=== PATIENT | female | born 1970 | race Two or more races ===

== ENCOUNTER → 2016-10-17 | Outpatient (CLI) | payer OTHER ==
[~2016-10-17] MED LIST: BENADRYL25 MG PO; PREDNISONE PO; PRILOSEC; PRILOSEC PO; PROTONIX PO; SYNTHROID; SYNTHROID PO; ZYRTEC; ZYRTEC PO
--- NOTE | ~2016-10-17 | MR113 ---
[facility] A Service of [facility] RADIOLOGY TEXT RESULTS PATIENT: YAZ BERMAN LOCATION: [facility] : 74 UNIT #: [id number] AGE: [address]: Zora Carlisle MD SEX: F ORDER DR: [id number] [facility] [address] [facility] [place], [place] [address] [id number] O MR#: [id number] Acc #: [id number] NAME: YAZ BERMAN : 1970 SEX: F STUDY DATE/TIME: 10/17/2016 8:19 UNIT: [facility] ROOM: STUDY DESCRIPTION: MR Lumbar Wo Contrast Attending Physician: Zora Carlisle M.D. Referring Physician: Zora Carlisle M.D. Ordering Physician: Zora Carlisle M.D. Primary Care Physician: Zora Carlisle M.D. MRI CENTER REPORT This report is preliminary unless electronic signature is present. EXAM MRI of the lumbar spine without contrast. DATE OF EXAM 10/17/2016 COMPARISON Plain films lumbar spine, dated 09/25/2016. HISTORY Patient fell backwards down the stairs 22 years ago with pain on and off. The pain has increased over the past 6 years with sciatica. The patient also has occasional bilateral leg pain and numbness. FINDINGS Multisequence, multiplanar imaging of the lumbar spine was obtained without contrast. Vertebral body heights and alignment are preserved. There is a fatty signal nonaggressive benign appearing lesion in T12 vertebral body measuring less than a centimeter in size. It is probably an incidental hemangioma or intraosseous lipoma based on statistics. Another 1 cm lesion is noted in the left lateral aspect of S1 segment with some edema within it and some fatty components. Degenerative mild disc signal loss is seen at L4-5 and to a lesser degree at L2-3 and L3-4. Conus terminates at inferior aspect of L1 extending to L1-2 level. Pre and paravertebral soft tissues do not demonstrate any significant abnormality. L1-2: Concentric disc bulge which is slightly prominent in the left foraminal to extraforaminal region suspicious for superimposed broad-based protrusion with mild inferior left neural foraminal encroachment. Borderline-sized canal. L2-3, L3-4: Concentric disc bulge which is slightly prominent in the left STS. [facility] A Service of [facility] RADIOLOGY TEXT RESULTS PATIENT: YAZ BERMAN [facility] 74 UNIT #: [id number] AGE: [address]: Zora Carlisle MD SEX: F ORDER DR: extraforaminal to foraminal region. Mild inferior bilateral neural foraminal narrowing. There is mild canal stenosis, slightly worse at L3-4 when compared to L2-3. L4-5: Moderate disc bulge which is asymmetrically prominent in the left foraminal to extraforaminal regions suggestive of superimposed broad-based protrusion. Moderate left and mild inferior right neural foraminal narrowing are noted. Mild bilateral facet changes, mild canal stenosis and mild bilateral lateral recess stenosis are seen. L5-S1: Concentric disc bulge with superimposed [id number] central protrusion and mild inferior bilateral neural foraminal narrowing. Minimal bilateral facet changes are noted without significant canal stenosis. IMPRESSION 1. Degenerative changes are noted at multiple levels, relatively worse at L4-5 followed by L3-4. 2. Fatty signal lesions are noted at L5 and S1 with mild associated edema. They are probably nonaggressive lesions like atypical hemangioma based on statistics. No associated pathological fracture or extraosseous soft tissue components are seen. Dictated by... Derek Claros M.D. THIS IS AN ELECTRONICALLY VERIFIED REPORT Derek Claros M.D. at 10/18/2016 3:06 PM CPR/jt TD: 10/17/2016 18:18 JOB #: [id number] MRI CENTER REPORT COPY
== END | disposition home or self-care (01) ==
LOC: CMRI 07:31
DX: M54.5 Low back pain (principal); M47.816 Spondylosis without myelopathy or radiculopathy, lumbar region
CPT/HCPCS: 72148

== ENCOUNTER → 2017-01-14 | Outpatient (CLI) | payer OTHER ==
--- NOTE | ~2017-01-14 | MY29 ---
[facility] A Service of [facility] & [facility] RADIOLOGY TEXT RESULTS PATIENT: YAZ BERMAN LOCATION: [facility] : 74 UNIT #: [id number] AGE: [address]: Zora Carlisle MD SEX: F ORDER DR: [id number] [facility]. [place], [place] [address] [id number] O MR#: [id number] Acc #: [id number] NAME: YAZ BERMAN : 1970 SEX: F STUDY DATE/TIME: 01/14/2017 15:35 UNIT: [facility] ROOM: STUDY DESCRIPTION: MY MICHELLE SCREENING W/ CAD BILAT Attending Physician: Zora Carlisle M.D. Ordering Physician: Zora Carlisle M.D. Primary Care Physician: Zora Carlisle M.D. MEDICAL IMAGING REPORT This report is preliminary unless electronic signature is present EXAM Bilateral digital screening mammogram with CAD, 01/14/2017 HISTORY No documented personal or family history of breast cancer. No current complaints. COMPARISON Bilateral screening mammogram 06/22/2014, 12/28/2015. FINDINGS CC and MLO views were obtained of each breast utilizing digital technique and reviewed with an FDA-approved CAD device. Scattered fibroglandular densities are present bilaterally. Scattered diffuse benign-appearing calcifications are present bilaterally. No focal suspicious clustered microcalcifications are evident. No new mass lesion, architectural distortion, skin thickening or nipple retraction is identified. IMPRESSION Routine bilateral screening mammogram is recommended in one year. Patients over the age of 40 are entered into a reminder system with target due date for the next mammogram. A result letter will also be sent to the patient. BIRADS: 2 Benign Finding Dictated by... Leigh Lee M.D. THIS IS AN ELECTRONICALLY VERIFIED REPORT [facility] A Service of [facility] RADIOLOGY TEXT RESULTS PATIENT: YAZ BERMAN LOCATION: [facility] : 74 UNIT #: [id number] AGE: [address]: Zora Carlisle MD SEX: F ORDER DR: Leigh Lee M.D. at 01/16/2017 9:00 AM Ganesh TD: 01/15/2017 14:41 JOB #: [id number] MEDICAL IMAGING REPORT Page 1 of 1 COPY
== END | disposition home or self-care (01) ==
LOC: CWCC 15:06
DX: Z12.31 Encounter for screening mammogram for malignant neoplasm of breast (principal)
CPT/HCPCS: G0202